=== PATIENT | male | born 1955 | race Caucasian/White ===

== ENCOUNTER 2018-02-24 15:30 | Outpatient (RCR) | payer OTHER, SELFPAY ==
--- NOTE | 2018-02-04 16:47 | HP.PTEVAL ---
Patient's Visit Information CHARITY REYES is a 62 year old M referred to Physical Therapy by Homer Brennan with a diagnosis of Tendinopathy of R rotator cuff, instability of R shoulder joint, OA of R AC. Date of Evaluation: 02/04/18 Physical Therapist: Dashawn Milligan PT, - Visit Plan Frequency: 2x /Week Duration: 3 Weeks Plan: Joint mobilizations, not at end range. Non-aggresive ROM exercises. Rotator cuff strengthening and scapular stabilizations. Precautions: avoid end range positions as pt has history of recurrent subluxations. - Subjective Subjective: Pt reports a long history of R shoulder subluxations. Most recent subluxation was about 6 months ago. In past 2-3 months, his R shoulder pain and ROM have worsened. Before this, patient would only have pain when shoulder would get out of place. Pt states that the doctor said his shoulder was freezing up. Pt reports pain at the superior and posterior aspects of his shoulder. He describes his symptom as an ache. Sleeping is difficult and painful. Had cortisone injection 2 weeks ago and this helped some. He is left handed. Denies neck pain, has intermittent numbness and tingling. Aggrevating factors: reaching across body, active abduction to 90 degrees. Easing factors: Medications, icyhot, ice. OCCUPATION: [employer], no work restrictions from R shoulder pain - Pain R shoulder Pain Intensity (Out of 10): 7 Pain Intensity Range: 10 Comment: achy - Objective POSTURE: forward head, Shay scapular winging R>L, head of humerus sitting anterior in glenoid. PALPATION: TTP supraspinatus, posterior scuff, medial scapular border. ROM: R shoulder: flexion 98, abduction 77, functional IR iliac crest, functional ER temporal. L shoulder: hypermobile in all planes. STRENGTH: R shoulder ER and IR 4-/5, supraspinatus 3+/5, serratus anterior 3+/5. L shoulder gross 4/5. ASSESSORY MOTION: R shoulder hypomobile inferior and posterior GH glide. - Special Tests R Shoulder Neer - Impingement: Positive R Shoulder Awan Benigno - Impingement: Positive R Shoulder Sulcus Sign - Inferior Laxity: Positive R Shoulder Apprehension/Relocaton - SLAP: Positive R Shoulder Shrug Sign - OA/Adhesive Capsulitis: Positive - Goals Goal 1:: Pt will demonstrate active shoulder elevation of >130 degrees to improve function tolerance with overhead reaching. Goal Time Frame: 4-6 Weeks Goal 2:: Pt will demonstrate external rotation ROM of >60 degrees to improve independence with self care activities. Goal Time Frame: 4-6 Weeks Goal 3:: Pt will demonstrate IR/ER strength of 4+/5 to improve GH stability. Goal Time Frame: 4-6 Weeks Goal 4:: Pt will be independent with HEP to sustain gains made in therapy. Goal Time Frame: 4-6 Weeks Goal 5:: Pt will improve DASH score by 8% to demonstrate true change in R UE function. Goal Time Frame: 4-6 Weeks - Rehabilitation Potential Physical Therapy Diagnosis: Pt is a 62 y/o male referred with diagnosis of R rotator cuff tendinopathy and instability of R shoulder joint. He reports a long history of recurrent R shoulder subluxations but worsening of R shoulder pain and ROM in past 2-3 months. Objective testing reveals decreased A/PROM, decreased strength, and GH accessory joint hypomobility. His ROM seems to be limited more from capular tightness. There may be underlying pathology but unable to complete further special testing due to his lack of ROM. His unaffected side does appear to be hypermobile. ROM and manual interventions will have to be performed with caution due to hypermobility and his history of subluxations. He has activity restrictions that include limited tolerance with reaching and overhead activities. His prognosis for an ideal outcome is good but is limited due to his history of recurrent dislocations. Pt will benefit from skilled therapy to addess the above mentioned impairments. Rehabilitation Potential: Good - Anticipated Interventions Patient/Client Instruction: Educate patient on: Condition, Plan of Care For the Purpose of:: To decrease pain, To increase ROM, To improve muscle performance and motor function, To improve ability to perform ADL's, To improve performance and independence with ADL's, To increase flexibility/ROM, To improve endurance, To prevent re-injury Therapeutic Exercise to Include: Strength training, Coordination, Body mechanics, Passive ROM, Active ROM For the Purpose of:: To decrease pain, To increase ROM, To improve ability to perform ADL's, To improve performance and independence with ADL's, To increase flexibility/ROM, To improve endurance, To prevent re-injury Manual Therapy Techniques to Include: Mobilization, Passive ROM For the Purpose of:: To decrease pain, To increase ROM, To improve muscle performance and motor function, To improve ability to perform ADL's, To decrease soft tissue restriction, To increase flexibility/ROM, To improve endurance Cryotherapy (ice pack, ice massage): Yes Ultrasound (thermal/non thermal): Yes For the Purpose of:: To decrease pain, To increase ROM, To increase tolerance to activity/condition/position Thank you for the opportunity to evaluate your patient. For Medicare and Medicare HMO plans, please review the plan of care and approve it. It will need to be FAXED BACK to us at [phone] for Medicare purposes. Please let me know if there are questions or concerns regarding this plan of care. Physician Signature: Date:
--- NOTE | 2018-02-24 16:05 | HP.PTDCSUM ---
HP - PT D/C Summary It has been my pleasure to treat CHARITY REYES under orders from Homer Brennan, for the diagnosis of Tendinopathy of R rotator cuff, instability of R shoulder joint, OA of R AC for a total of 6 visit(s). Discharge Date: 02/24/18 Please see the following information for a summary of their discharge status. - Subjective Subjective: Pt denies pain prior to the session. Morning pain is decreasing. Compliant with HEP. Feels comfortable for today being his last day. Understands he needs to continue his HEP. - Pain R shoulder Pain Intensity (Out of 10): 0 - Overall Improvement % Improvement: 75 - Objective Objective/Function: See goal updates. Pt has made good improvement in function, strength, and ROM since initial evaluation. Reports 75% improvement. L shoulder flexion 132 degrees, ER ROM 45 degrees, B IR/ER strength 5/5. - Goals Goal 1:: Pt will demonstrate active shoulder elevation of >130 degrees to improve function tolerance with overhead reaching. Goal Progress: Goal Met Goal 2:: Pt will demonstrate external rotation ROM of >60 degrees to improve independence with self care activities. Goal Progress: Progressing Goal 3:: Pt will demonstrate IR/ER strength of 4+/5 to improve GH stability. Goal 4:: Pt will be independent with HEP to sustain gains made in therapy. Goal Progress: Goal Met Goal 5:: Pt will improve DASH score by 8% to demonstrate true change in R UE function. Goal Progress: Goal Met - Plan Plan: D/C with HEP. - D/C Information Discharge Comments: Pt has made progress with R shoulder function, ROM, and strength. Pt has met 4/5 PT goals. His ROM is more functional but still limited overhead. His HEP was reviewed today and will allow him to contiune to work on his ROM. Patienmt plans to RTD If there are questions or concerns regarding this patient's physical therapy, please feel free to call me at [phone]. Thank you for the referral of this patient. Sincerely, Dashawn Milligan, PT,
== END 2018-02-24 19:00 | disposition home or self-care (01) ==
LOC: PT 15:30
PROVIDERS: Family Provider Family Medicine; PCP Family Medicine; Visit Provider Family Medicine
DX: M67.911 Unspecified disorder of synovium and tendon, right shoulder (principal); M25.311 Other instability, right shoulder; M19.011 Primary osteoarthritis, right shoulder
CPT/HCPCS: 97110; 97140; 97162; 97530

== ENCOUNTER 2018-11-17 16:01 | Observation (INO) | payer OTHER, SELFPAY ==
[2018-11-17] VITALS (7 sets, daily range): BP systolic 148–173; BP diastolic 86–102; PULSE 54–89; RESP 16–18; TEMP 36.6–36.8; O2SAT 94–97; BMI 26.6; BMI 25.4
--- NOTE | 2018-11-17 16:08 | EKG12_ITS ---
Test Reason : CP Blood Pressure : / mmHG Vent. Rate : 085 BPM Atrial Rate : 085 BPM P-R Int : 180 ms QRS Dur : 078 ms QT Int : 338 ms P-R-T Axes : 073 047 049 degrees QTc Int : 402 ms Normal sinus rhythm Septal infarct , age undetermined Abnormal ECG Confirmed by CATALINA MENEZES, ETHAN ([id number]), newspaper copy editor ENRIQUE FREEMAN ([id number]) on 11/20/2018 10:55:12 AM Referred By: Ezio Mir Confirmed By:ETHAN ARNOLD MD
--- NOTE | 2018-11-17 16:10 | RAD_ITS ---
STUDY: X-RAY CHEST REASON FOR EXAM: Male, 63 years old. Chest pain TECHNIQUE: Portable chest COMPARISON: None. FINDINGS: There is generalized pulmonary hyperlucency and hyperinflation with diffuse mild coarsening of interstitium in a pattern suggesting the possibility of underlying COPD. Correlate smoking history. The lungs are otherwise clear. Normal cardiomediastinal silhouette, ever and pleural margins. No acute osseous or upper abdominal process. RAD/Chest 1 View (Portable) IMPRESSION: No acute cardiopulmonary process. Electronically Signed: Omar Cardenas MD at 17:37 EDT Tel , Service support ,
[2018-11-17 16:24] LABS: Absolute Lymphocyte Count 2.39 X10^3/ul (0.83-4.51); Absolute Neutrophil Count 4.2 X10^3/uL (2.0-7.7); Basophil# 0.04 X10^3/uL; Basophil% 0.5 % (0-1); Eosinophil# 0.78 X10^3/uL; Eosinophils% 9.8 % (0-5); Hematocrit 44.8 % (40-54); Hemoglobin 15.1 g/dl (13.0-16.5); Lymphocyte # 2.39 X10^3/ul (4.0); Mean Corp Hgb Conc 33.7 g/gl (32-36); Mean Corpuscular Hgb 28.4 pg (27.0-32.0); Mean Corpuscular Volume 84.2 fL (80-94); Monocyte# 0.55 X10^3/uL; Monocyte% 6.9 % (0-10); Neutrophil % 52.7 % (47-70); POSITIVE COUNT NO; POSITIVE DIFFERENTIAL NO; POSITIVE MORPHOLOGY NO; Platelet Count 219 K/mm3 (150-450); RBC Distribution Width CV 13.5 % (11.6-14.6); RBC Distribution Width SD 41.9 fl (35.1-43.9); Red Blood Count 5.32 M/mm3 (4.6-6.2)
[2018-11-17 16:37] LABS: Anion Gap 8 (5-15); BUN 21 mg/dL (7-18); BUN/Creat Ratio 22.5 RATIO (10-20); Chloride 104 mmol/L (98-107); Creatinine, Serum 0.93 mg/dL (0.70-1.30); EST Glomerular Filtration Rate 87 mL/min (>60); Est Glom Filt Rate - Afr Amer 105 mL/min (>60); Glucose 93 mg/dL (74-106); Potassium 3.7 mmol/L (3.5-5.1); Sodium Level 137 mmol/L (136-145)
[2018-11-17] MEDS: Ondansetron 4 MG/2 ML Vial IV ×2 (17:35→21:05)
[2018-11-17] MEDS: Morphine 4 MG/ML Syringe IV ×2 (17:37→18:41)
[2018-11-17] MEDS: Aspirin 325 MG Tablet PO (17:37)
--- NOTE | 2018-11-17 17:43 | ED.VISSUMM ---
- ER Visit Summary Date of Service: 11/17/18 Chief Complaint: Chest pain History of Present Illness: The patient is a 63 M presenting with chest pain. Patient states this started on Saturday. He has had intermittent episodes of chest pain lasting approximately 30 minutes. He states he feels like a squeezing in his chest. He has associated shortness of breath, diaphoresis. He denies nausea or vomiting. Denies fever or cough. He has a history of hypertension, hypercholesterolemia, coronary disease. He is a previous smoker. He has 1 stent. His father had an GA at age 40. No PE/DVT risk factors. Physical Examination: Vitals are stable. Blood pressure 173/102. Patient is afebrile. Alert no acute distress. HEENT exam is unremarkable. Neck is supple. Lungs are clear and equal bilaterally. Heart is regular rate and rhythm. Abdomen is soft nontender nondistended. Extremities are unremarkable. Skin is warm and dry. No focal neurologic deficit. Remainder of exam is unremarkable. Emergency Department Course and Treatment: EKG is sinus rate of 85 with no acute ischemic changes. Chest x-ray shows no acute process. CBC, chemistries unremarkable other than BUN 21. Troponin is negative. Patient was given aspirin, morphine, Zofran. On reevaluation he is pain-free. On second reevaluation patient complains of 4 out of 10 chest pain. Repeat EKG was obtained and is unchanged. He is given additional morphine with improvement. Discussed with hospitalist for observation. Disposition: Observation Impression: Chest pain This note was generated with [employer] dictation software. It may contain incorrect words, spelling, and punctuation that were not noted in review of the chart prior to signing ED Disposition - Plan for ED Patient: Referrals: Homer Brennan MD [Primary Care Provider] -
--- NOTE | 2018-11-17 17:46 | ED.DCSUM_ITS ---
- ER Visit Summary Date of Service: 11/17/18 Chief Complaint: Chest pain History of Present Illness: The patient is a 63 M presenting with chest pain. Patient states this started on Saturday. He has had intermittent episodes of chest pain lasting approximately 30 minutes. He states he feels like a squeezin g in his chest. He has associated shortness of breath, diaphoresis. He denies nausea or vomiting. Denies fever or cough. He has a history of hypertension, hypercholesterolemia, coronary disease. He is a previous smoker. He has 1 stent. His father had an ND at age 40. No PE/DVT risk factors. Physical Examination: Vitals are stable. Blood pressure 173/102. Patient is afebrile. Alert no acute distress. HEENT exam is unremarkable. Neck is supple. Lungs are clear and equal bilaterally. Heart is regular rate and rhythm. Abdomen is soft nontender nondistended. Extremities are unremarkable. Skin is warm and dry. No focal neurologic deficit. Remainder of exam is unremarkable. Emergency Department Course and Treatment: EKG is sinus rate of 85 with no acute ischemic changes. Chest x-ray shows no acute process. CBC, chemistries unremarkable other than BUN 21. Troponin is negative. Patient was given aspirin, morphine, Zofran. On reevaluation he is pain-free. On second reevaluation patient complains of 4 out of 10 chest pain. Repeat EKG was obtained and is unchanged. He is given additional morphine with improvement. Discussed with hospitalist for observation. Disposition: Observation Impression: Chest pain This note was generated with [employer] dictation software. It may contain incorrect words, spelling, and punctuation that were not noted in review of the chart prior to signing ED Disposition - Plan for ED Patient: Referrals: Homer Brennan MD [Primary Care Provider] -
--- NOTE | 2018-11-17 18:37 | EKG12_ITS ---
Test Reason : REPEAT Blood Pressure : / mmHG Vent. Rate : 059 BPM Atrial Rate : 059 BPM P-R Int : 188 ms QRS Dur : 080 ms QT Int : 378 ms P-R-T Axes : 077 064 069 degrees QTc Int : 374 ms Sinus bradycardia Septal infarct , age undetermined Abnormal ECG Confirmed by CATALINA MENEZES, ETHAN ([id number]), film editor supervisor ENRIQUE FREEMAN ([id number]) on 11/20/2018 10:55:36 AM Referred By: Ezio Mir Confirmed By:ETHAN ARNOLD MD
--- NOTE | 2018-11-17 18:39 | HP.PCM_ITS ---
Problem List (1) COPD (chronic obstructive pulmonary disease) Status: Chronic (2) Atypical chest pain Status: Acute (3) Hypertension Status: Chronic (4) Dyslipidemia Status: Chronic History of Present Illness Date of Admission: 11/17/18 Chief Complaint: Chest pain for last 3 days The patient is a 63 year old M with history of coronary artery disease status post stent after SC in 2014, moved from [place] a year ago came to ED for chest pain. He had chest pain on last Saturday at 3 AM lasted for about 45 minutes to 1 hour. The chest pain was localized. After that, he felt short lasting chest pain and then today he had chest pain, left-sided which radiates to right and interscapular region lasted for about 40 minutes. He had associated shortness of breath, diaphoresis, dizziness and lightheadedness. Patient father had SC at the age of 40. In ED, he had 2 EKGs which shows normal sinus rhythm with old septal infarct. No significant ST-T changes suggestive of ischemia. Chest x-ray does not show acute change. Patient does not complain of exacerbation of cough, wheezing or sputum suggestive of COPD exenteration Past Medical History Past Medical History (Chronic Problems): Chronic Problems COPD (chronic obstructive pulmonary disease) (Chronic) Hypertension (Chronic) Dyslipidemia (Chronic) Allergies Penicillins Allergy (Verified 11/17/18 16:01) Hives Home Medications: Ambulatory Orders Medication Instructions Recorded Aspirin [Aspirin, Baby] 81 mg PO DAILY@0800 11/17/18 Carvedilol 6.25 mg PO BID 11/17/18 Lisinopril 5 mg PO DAILY 11/17/18 Nitroglycerin [Nitrostat] 0.4 mg SUBLINGUAL Q5M PRN 11/17/18 Red Yeast Rice 1,200 mg PO BID 11/17/18 Smoking Status: Former smoker - *Family History Paternal History Items: Heart Disease - SC at the age of 40 Review of Systems Constitutional: Denies: Chills, Fever, Weight Change HEENT: Denies: Head Aches, Sinus Congestion, Sinus Drainage Cardiovascular: Reports: Chest Pain. Denies: Palpitations Respiratory: Reports: Cough - Mild chronic cough secondary to COPD, Shortness of Breath. Denies: Shortness of breath at rest, Shortness of breath upon exertion, Sputum production Gastrointestinal: Denies: Abdominal Pain, Nausea, Vomiting Genitourinary: Denies: Dysuria, Frequency, Incontinence, Retention Musculoskeletal: Reports: - - He had traumatic injury of right hand fingers except thumb. Denies: Joint Pain, Joint Tenderness Skin: Denies: Rash, Wounds Neurological: Denies: Balance problems, Focal weakness, Numbness, Tingling Psychiatric: Denies: Anxiety, Depression, Homicidal Ideations, Suicidal Ideations Hematologic/ Lymphatic: Denies: Easy Bruising, Easy Bleeding VTE Information - Inpt Only VTE Present on Admission: No VTE Mechan Device Prophylaxis: None VTE Pharm Prophylaxis ordered?: Yes Patient Problems: Active and Suspected Problems Atypical chest pain (Acute) - Physical Exam General: Alert, Oriented x3, Cooperative HEENT: Atraumatic, PERRLA, EOMI, Normocephalic Neck: Supple, No JVD, Negative Carotid Bruits Lungs: Clear to auscultation, No rhonchi, No wheeze, No rales, Diminished - Air entry is diminished bilaterally Cardiovascular: Regular rate, Regular Rhythm, Normal S1, Normal S2, No murmurs Abdomen: Bowel Sounds Present, Soft, Non Tender, Non-Distended Extremities: No edema, Capillary Refill Less than 3 Seconds, - - 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 No acute issues Skin: No rashes, No breakdown Musculoskeletal: No Tenderness to Palpation of Joints or Extremities, Arthritic Changes Neurological: Cranial nerves II-XII grossly intact Psych/Mental Status: Normal Affect, Appropriate Vital Signs Temp Pulse Resp BP Pulse Ox 98.3 F 69 18 148/88 H 94 11/17/18 16:03 11/17/18 18:13 11/17/18 18:13 11/17/18 18:13 11/17/18 18:13 Oxygen Delivery Method Room Air Weight: 170 lb Body Mass Index (BMI) 26.6 Laboratory Tests Past 24 Hrs 11/17/18 11/17/18 16:05 16:05 WBC 8.0 RBC 5.32 Hgb 15.1 Hct 44.8 MCV 84.2 MCH 28.4 MCHC 33.7 RDW 13.5 RDW Differential 41.9 Plt Count 219 MPV 9.0 Immature Gran % (Auto) 0.100 Neut % (Auto) 52.7 Lymph % (Auto) 30.0 [place] % (Auto) 6.9 Eos % (Auto) 9.8 H Baso % (Auto) 0.5 Absolute Neuts (auto) 4.2 Absolute Lymphs (auto) 2.39 Total Counted Not Reportable Sodium 137 Potassium 3.7 Chloride 104 Carbon Dioxide 25.0 Anion Gap 8 BUN 21 H Creatinine 0.93 Estim Creat Clear Calc 77.00 Est GFR (MDRD) Af Amer 105 Est GFR (MDRD) Non-Af 87 BUN/Creatinine Ratio 22.5 H Glucose 93 Calcium 9.0 Troponin I < 0.015 Assessment/Plan All Active Problems Atypical chest pain (Acute) The patient is a 63 year old M with history of coronary artery disease status post stent after SC in 2014, moved from [place] a year ago came to ED for chest pain. He had chest pain on last Saturday at 3 AM lasted for about 45 minutes to 1 hour. The chest pain was localized. After that, he felt short lasting chest pain and then today he had chest pain, left-sided which radiates to right and interscapular region lasted for about 40 minutes. He had associated shortness of breath, diaphoresis, dizziness and lightheadedness. Patient father had SC at the age of 40. In ED, he had 2 EKGs which shows normal sinus rhythm with old septal infarct. No significant ST-T changes suggestive of ischemia. Chest x-ray does not show acute change. Patient does not complain of exacerbation of cough, wheezing or sputum suggestive of COPD exenteration 1. Atypical chest pain rule out acute coronary syndrome: The patient is being admitted in PCU. First troponin is negative. Serial troponin enzymes. Pharmacological nuclear stress test tomorrow morning. Fasting lipid profile t omorrow morning. TSH tomorrow a.m. 2. Coronary artery disease status status post stent, SC in 2015: Continue home cardiac medications. Patient is on baby aspirin, Coreg 6.25 mg twice daily, lisinopril 5 mg daily. 3. Hypertension: Patient stated his blood pressure was high on Saturday and at home. Currently 157/86. Increase the lisinopril to 10 mg daily. 4. Dyslipidemia: Not on a statin at home. Atorvastatin 40 mg nightly daily. Lipid profile tomorrow a.m. COPD: Stable. Bronchodilator as needed. Incentive spirometry. Mucinex 1200 mg twice daily. Chest x-ray did not show acute change. DVT prophylaxis: On heparin 5000 units subcutaneous twice daily. Discontinue if platelet count drops less than 50,000 or hemoglobin less than 8 g% Clinical Impression(s) from Imaging Studies Chest X-Ray 11/17/18 16:10 IMPRESSION: No acute cardiopulmonary process. Code Visit OBSV E&M: 90361 Initial observation care L3
[2018-11-17] MEDS: 0.9% NaCl Peripheral Flush Adult/Peds IV (21:05)
[2018-11-17] MEDS: Carvedilol 6.25 MG Tablet PO (21:05)
[2018-11-17] MEDS: Atorvastatin Calcium 40 MG Tablet PO (21:05)
[2018-11-17] MEDS: Heparin Injection (Vial) 5,000 UNIT/ML VIAL 5000 UNIT SC (21:05)
[2018-11-17] MEDS: Lisinopril 10 MG Tablet PO (21:16)
[2018-11-18] VITALS (7 sets, daily range): BP systolic 117–140; BP diastolic 66–78; PULSE 47–57; RESP 16–18; TEMP 36.5–36.9; O2SAT 93–96
--- NOTE | 2018-11-18 05:55 | EKG12_ITS ---
Test Reason : AM EKG Blood Pressure : / mmHG Vent. Rate : 049 BPM Atrial Rate : 049 BPM P-R Int : 196 ms QRS Dur : 086 ms QT Int : 404 ms P-R-T Axes : 061 050 064 degrees QTc Int : 364 ms Sinus bradycardia Septal infarct , age undetermined Abnormal ECG When compared with ECG of 17-NOV-2018 18:43, MANUAL COMPARISON REQUIRED, DATA IS UNCONFIRMED Confirmed by CATALINA MENEZES, ETHAN ([id number]), society editor ENRIQUE FREEMAN ([id number]) on 11/21/2018 9:37:51 AM Referred By: Ezio Mir Confirmed By:ETHAN ARNOLD MD
[2018-11-18 06:05] LABS: Absolute Lymphocyte Count 2.13 X10^3/ul (0.83-4.51); Absolute Neutrophil Count 3.1 X10^3/uL (2.0-7.7); Basophil# 0.03 X10^3/uL; Basophil% 0.5 % (0-1); Eosinophil# 0.59 X10^3/uL; Eosinophils% 9.5 % (0-5); Hematocrit 42.3 % (40-54); International Normalized Ratio 1.1; Lymphocyte # 2.13 X10^3/ul (4.0); Lymphocyte % 34.1 % (19-41); Mean Corp Hgb Conc 33.1 g/gl (32-36); Mean Corpuscular Hgb 28.1 pg (27.0-32.0); Mean Corpuscular Volume 84.9 fL (80-94); Mean Platelet Vol. 9.1 fl (6.2-12.0); Monocyte% 6.4 % (0-10); Neutrophil # 3.08 X10^3/uL (2.7-7.7); Neutrophil % 49.3 % (47-70); Platelet Count 188 K/mm3 (150-450); Prothrombin Time (Protime)PT. 13.8 SECONDS (11.7-14.9); RBC Distribution Width CV 13.6 % (11.6-14.6); RBC Distribution Width SD 41.7 fl (35.1-43.9); Red Blood Count 4.98 M/mm3 (4.6-6.2); White Blood Count 6.2 K/mm3 (4.4-11.0)
[2018-11-18 06:06] LABS: Partial Thromboplast Time 33.8 Seconds (24.1-36.2)
[2018-11-18] MEDS: Aspirin E.C. 81 MG Tablet PO (06:18)
[2018-11-18] MEDS: Lisinopril 10 MG Tablet PO (06:18)
[2018-11-18 06:40] LABS: Anion Gap 10 (5-15); BUN 20 mg/dL (7-18); BUN/Creat Ratio 22.7 RATIO (10-20); Calcium,Total 8.4 mg/dL (8.5-10.1); Chloride 105 mmol/L (98-107); Cholesterol 170 mg/dL (200); Creatinine, Serum 0.88 mg/dL (0.70-1.30); EST Glomerular Filtration Rate 93 mL/min (>60); Est Glom Filt Rate - Afr Amer 112 mL/min (>60); Estimated Creatinine Clearance 81.37 ml/min; Glucose 95 mg/dL (74-106); High Density Lipoprotein 59 mg/dL; Sodium Level 141 mmol/L (136-145); Thyroid Stim Hormone (TSH) 1.87 uIU/mL (0.358-3.74); Triglycerides 74 mg/dL; Very Low Density Lipoprotein 15 mg/dL (5-40)
[2018-11-18 06:45] LABS: POSITIVE COUNT NO; POSITIVE DIFFERENTIAL NO; POSITIVE MORPHOLOGY NO
[2018-11-18] MEDS: Carvedilol 6.25 MG Tablet PO (11:23)
--- NOTE | 2018-11-18 11:47 | STRESSREP ---
Stress Test Report From oncologic myocardial perfusion stress test. 63-year-old man with a history of coronary artery disease and chest pain. Medications: Aspirin Lipitor Coreg lisinopril. Stress protocol: Resting EKG demonstrates sinus bradycardia with a rate of 51 bpm normal intervals are noted resting blood pressure 136/80 mmHg. 0.4 mg of regadenoson was infused per usual protocol followed by rapid intravenous saline flush injection continuous EKG monitoring was performed. The maximum heart rate attained was 125 bpm which was 79% of maximum predicted heart rate the maximum workload was 1 metabolic equivalent. At rest there were no ST or T wave changes noted suggest abnormal flow reserve at peak infusion nonspecific ST-T wave changes were noted with normally the criteria for ischemia. Resting blood pressure 136/80 final blood pressure 142/82. Myocardial perfusion protocol. 11.8 mCi of technetium 99m sestamibi was injected at rest. 0.4 mg of regadenoson was infused per usual protocol peak infusion 32.9 mCi of technetium 99m sestamibi was injected stress images were obtained stress and rest images were reconstructed and compared in the short axis vertical long horizontal long axis. Gated images were also obtained Perfusion SPECT analysis: Review of the stress images demonstrate normal uptake of tracer noted in all areas of myocardium. The resting images similarly demonstrate normal uptake of tracer noted in all areas of myocardium. No obvious areas of reversibility are noted suggest ischemia no previous infarct is noted. Gated SPECT analysis: The gated ejection fraction is noted to be 79%. No wall motion abnormalities are present. Conclusion: Normal pharmacologic myocardial perfusion stress test. Preserved ejection fraction.
[2018-11-18] MEDS: Ensure Clear 120 ML Liquid PO (12:56)
--- NOTE | 2018-11-18 16:51 | PCM.DC ---
- Discharge Diagnoses Current Active Problems: Current Active and Chronic Problems COPD (chronic obstructive pulmonary disease) (Chronic) Atypical chest pain (Acute) Hypertension (Chronic) Dyslipidemia (Chronic) You will use the following diet at home:: Cardiac Your food should be the consistency of: Regular Your liquids should be the consistency of: Regular/Thin Discharge Activity: Return to Normal Activity Call your doctor if you observe: Fever of 101 or Higher, Shortness of breath, Dizziness, Fainting spells, Swelling in the ankles, Chest pain - persistent CP....shawn if comes on with exertion and goes away with rest, or it is associated with sweating, radiation to the jaw, arm or back Additional Instructions: The stress test was negative and the heart squueezes normally. The heart monitor did not show any funny things with the rhythm. The LDL, or bad cholesterol, is too high at 96......in patients who have had coronary artery disease the LDL should be less than 70. I am giving you a prescription for a lipid lowering agent. The medication is called Crestor and you will take it every night at bedtime. You will need to have your PCP order a Lipid panel and a liver panel in 6 weeks. I think you should have a surveillance specialist to follow up with and the surveillance specialist who supervised the stress test was Dr. Lester Parks. He would be happy to see you in the office. Allergies/Adverse Reactions: Allergies Penicillins Allergy (Verified 11/17/18 16:01) Hives Medications to take at Discharge Aspirin [Aspirin, Baby] 81 mg PO DAILY@0800 11/17/18 Carvedilol 6.25 mg PO BID 11/17/18 Lisinopril 5 mg PO DAILY 11/17/18 Nitroglycerin [Nitrostat] 0.4 mg SUBLINGUAL Q5M PRN 11/17/18 Red Yeast Rice 1,200 mg PO BID 11/17/18 Primary Care Physician: Homer Brennan MD [Primary Care Provider] - Please follow up with your Primary Care Physician in: 1-2 weeks Test Results: Test results from this visit will be discussed in further detail at your follow-up appointment, if applicable. Please Follow Up With: Lester Parks MD When: 2-4 weeks Proposed Discharge Date: 11/18/18
--- NOTE | 2018-11-18 16:55 | DCINST_ITS ---
- Discharge Diagnoses Current Active Problems: Current Active and Chronic Problems COPD (chronic obstructive pulmonary disease) (Chronic) Atypical chest pain (Acute) Hypertension (Chronic) Dyslipidemia (Chronic) You will use the following diet at home:: Cardiac Your food should be the consistency of: Regular Your liquids should be the consistency of: Regular/Thin Discharge Activity: Return to Normal Activity Call your doctor if you observe: Fever of 101 or Higher, Shortness of breath, Dizziness, Fainting spells, Swelling in the ankles, Chest pain - persistent CP....shawn if comes on with exertion and goes away with rest, or it is associated with sweating, radiation to the jaw, arm or back Additional Instructions: The stress test was negative and the heart squueezes normally. The heart monitor did not show any funny things with the rhythm. The LDL, or bad cholesterol, is too high at 96......in patients who have had coronary artery disease the LDL should be less than 70. I am giving you a prescription for a lipid lowering agent. The medication is called Crestor and you will take it every night at bedtime. You will need to have your PCP order a Lipid panel and a liver panel in 6 weeks. I think you should have a director of database marketing to follow up with and the director of database marketing who supervised the stress test was Dr. Lester Parks. He would be happy to see you in the office. Allergies/Adverse Reactions: Allergies Penicillins Allergy (Verified 11/17/18 16:01) Hives Medications to take at Discharge Aspirin [Aspirin, Baby] 81 mg PO DAILY@0800 11/17/18 Carvedilol 6.25 mg PO BID 11/17/18 Lisinopril 5 mg PO DAILY 11/17/18 Nitroglycerin [Nitrostat] 0.4 mg SUBLINGUAL Q5M PRN 11/17/18 Red Yeast Rice 1,200 mg PO BID 11/17/18 Primary Care Physician: Homer Brennan MD [Primary Care Provider] - Please follow up with your Primary Care Physician in: 1-2 weeks Test Results: Test results from this visit will be discussed in further detail at your follow- up appointment, if applicable. Please Follow Up With: Lester Parks MD When: 2-4 weeks Proposed Discharge Date: 11/18/18
--- NOTE | 2018-11-18 17:05 | PCM.DC.SUM ---
Discharge Date and Diagnosis - Problem List Patient Problems: Active and Suspected Problems Atypical chest pain (Acute) Date of Admission: 11/17/18 Date of Discharge: 11/18/18 - Primary Discharge Diagnosis Active and Suspected Problems Atypical chest pain (Acute) - Secondary Discharge Diagnosis Chronic Problems History of PTCA 1 (Chronic) Tobacco dependence in remission (Chronic) -quit in 2014 COPD (chronic obstructive pulmonary disease) (Chronic) Hypertension (Chronic) Dyslipidemia (Chronic) Hospital Course and Treatment Imaging Results: Clinical Impression(s) from Imaging Studies Chest X-Ray 11/17/18 16:10 IMPRESSION: No acute cardiopulmonary process. Electronically Signed: Omar Cardenas MD at 17:37 EDT Tel , Service support , Laboratory Tests 11/18/18 11/18/18 11/18/18 Range/Units 05:30 05:30 05:30 WBC 6.2 (4.4-11.0) K/mm3 RBC 4.98 (4.6-6.2) M/mm3 Hgb 14.0 (13.0-16.5) g/dl Hct 42.3 (40-54) % MCV 84.9 (80-94) fL MCH 28.1 (27.0-32.0) pg MCHC 33.1 (32-36) g/gl RDW 13.6 (11.6-14.6) % RDW Differential 41.7 (35.1-43.9) fl Plt Count 188 (150-450) K/mm3 MPV 9.1 (6.2-12.0) fl Immature Gran % (Auto) 0.200 (0.0-0.9) % Neut % (Auto) 49.3 (47-70) % Lymph % (Auto) 34.1 (19-41) % [place] % (Auto) 6.4 (0-10) % Eos % (Auto) 9.5 H (0-5) % Baso % (Auto) 0.5 (0-1) % Absolute Neuts (auto) 3.1 (2.0-7.7) X10^3/uL Absolute Lymphs (auto) 2.13 (0.83-4.51) X10^3/ul Total Counted Not Reportable PT 13.8 (11.7-14.9) SECONDS INR 1.1 APTT 33.8 (24.1-36.2) Seconds Sodium 141 (136-145) mmol/L Potassium 4.0 (3.5-5.1) mmol/L Chloride 105 (98-107) mmol/L Carbon Dioxide 26.0 (21.0-32.0) mmol/L Anion Gap 10 (5-15) BUN 20 H (7-18) mg/dL Creatinine 0.88 (0.70-1.30) mg/dL Estim Creat Clear Calc 81.37 ml/min Est GFR (MDRD) Af Amer 112 (>60) mL/min Est GFR (MDRD) Non-Af 93 (>60) mL/min BUN/Creatinine Ratio 22.7 H (10-20) RATIO Glucose 95 (74-106) mg/dL Calcium 8.4 L (8.5-10.1) mg/dL Troponin I (<0.045) ng/mL Triglycerides 74 ( - 199) mg/dL Cholesterol 170 (200) mg/dL LDL Cholesterol 96 (0-130) mg/dL VLDL Cholesterol 15 (5-40) mg/dL HDL Cholesterol 59 (40 - ) mg/dL TSH 1.87 (0.358-3.74) uIU/mL 11/17/18 11/17/18 11/17/18 Range/Units 22:40 20:10 16:05 WBC (4.4-11.0) K/mm3 RBC (4.6-6.2) M/mm3 Hgb (13.0-16.5) g/dl Hct (40-54) % MCV (80-94) fL MCH (27.0-32.0) pg MCHC (32-36) g/gl RDW (11.6-14.6) % RDW Differential (35.1-43.9) fl Plt Count (150-450) K/mm3 MPV (6.2-12.0) fl Immature Gran % (Auto) (0.0-0.9) % Neut % (Auto) (47-70) % Lymph % (Auto) (19-41) % [place] % (Auto) (0-10) % Eos % (Auto) (0-5) % Baso % (Auto) (0-1) % Absolute Neuts (auto) (2.0-7.7) X10^3/uL Absolute Lymphs (auto) (0.83-4.51) X10^3/ul Total Counted PT (11.7-14.9) SECONDS INR APTT (24.1-36.2) Seconds Sodium 137 (136-145) mmol/L Potassium 3.7 (3.5-5.1) mmol/L Chloride 104 (98-107) mmol/L Carbon Dioxide 25.0 (21.0-32.0) mmol/L Anion Gap 8 (5-15) BUN 21 H (7-18) mg/dL Creatinine 0.93 (0.70-1.30) mg/dL Estim Creat Clear Calc 77.00 ml/min Est GFR (MDRD) Af Amer 105 (>60) mL/min Est GFR (MDRD) Non-Af 87 (>60) mL/min BUN/Creatinine Ratio 22.5 H (10-20) RATIO Glucose 93 (74-106) mg/dL Calcium 9.0 (8.5-10.1) mg/dL Troponin I < 0.015 < 0.015 < 0.015 (<0.045) ng/mL Triglycerides ( - 199) mg/dL Cholesterol (200) mg/dL LDL Cholesterol (0-130) mg/dL VLDL Cholesterol (5-40) mg/dL HDL Cholesterol (40 - ) mg/dL TSH (0.358-3.74) uIU/mL 11/17/18 Range/Units 16:05 WBC 8.0 (4.4-11.0) K/mm3 RBC 5.32 (4.6-6.2) M/mm3 Hgb 15.1 (13.0-16.5) g/dl Hct 44.8 (40-54) % MCV 84.2 (80-94) fL MCH 28.4 (27.0-32.0) pg MCHC 33.7 (32-36) g/gl RDW 13.5 (11.6-14.6) % RDW Differential 41.9 (35.1-43.9) fl Plt Count 219 (150-450) K/mm3 MPV 9.0 (6.2-12.0) fl Immature Gran % (Auto) 0.100 (0.0-0.9) % Neut % (Auto) 52.7 (47-70) % Lymph % (Auto) 30.0 (19-41) % [place] % (Auto) 6.9 (0-10) % Eos % (Auto) 9.8 H (0-5) % Baso % (Auto) 0.5 (0-1) % Absolute Neuts (auto) 4.2 (2.0-7.7) X10^3/uL Absolute Lymphs (auto) 2.39 (0.83-4.51) X10^3/ul Total Counted Not Reportable PT (11.7-14.9) SECONDS INR APTT (24.1-36.2) Seconds Sodium (136-145) mmol/L Potassium (3.5-5.1) mmol/L Chloride (98-107) mmol/L Carbon Dioxide (21.0-32.0) mmol/L Anion Gap (5-15) BUN (7-18) mg/dL Creatinine (0.70-1.30) mg/dL Estim Creat Clear Calc ml/min Est GFR (MDRD) Af Amer (>60) mL/min Est GFR (MDRD) Non-Af (>60) mL/min BUN/Creatinine Ratio (10-20) RATIO Glucose (74-106) mg/dL Calcium (8.5-10.1) mg/dL Troponin I (<0.045) ng/mL Triglycerides ( - 199) mg/dL Cholesterol (200) mg/dL LDL Cholesterol (0-130) mg/dL VLDL Cholesterol (5-40) mg/dL HDL Cholesterol (40 - ) mg/dL TSH (0.358-3.74) uIU/mL none Operations: None Procedures: Stress test - Gated SPECT analysis: The gated ejection fraction is noted to be 79%. No wall motion abnormalities are present. Conclusion: Normal pharmacologic myocardial perfusion stress test. Preserved ejection fraction. Summary of Care Provided: The patient is a 63 year old M with a past medical history of hypertension, coronary artery disease, PTCA x1 stent in 2015 in [place], tobacco dependence in remission, dyslipidemia and COPD who presented to the emergency department at [facility] on 11/17/2018 complaining of intermittent stabbing/sharp chest pain for the preceding 3 days. The chest pain was very localized and was described as stabbing. He took nitroglycerin at home with no relief. It was not associated with exertion. He complained of associated shortness of breath, diaphoresis, lightheadedness and took his blood pressure after the chest pain started and was very worried because it was high. EKG in the emergency room showed normal sinus rhythm with a QS wave in V1 and V2 which can be seen with prior septal infarct but can also be seen with LVH. There were no significant ST or T wave changes to suggest ischemia. Chest x-ray showed hyperinflation with flattening of the diaphragms. Serial cardiac enzymes were negative. He was taken to the stress lab on 11/18/2018 for a pharmacologic nuclear stress test. The gated nuclear ejection fraction was 79% with no wall motion abnormalities and the test was negative for ischemia. Telemetry while in the hospital showed SB with no significant ectopy. Lipid panel on the date of discharge showed a total cholesterol of 170 with an LDL of 96 and an HDL of 59. Triglycerides were 74. TSH was normal at 1.7. He was discharged home with a prescription for Crestor and will take 10 mg p.o. nightly. I recommended since he has a history of coronary disease that he follow-up with a railroad detective and Dr. Parks has agreed to see him. He will follow-up with Dr. Brennan in 1-2 weeks. He will need a repeat lipid panel and liver panel in 6 weeks since he is starting on Crestor. PHYSICAL EXAM: GENERAL: alert, oriented X 3, Cooperative, NAD ORAL: moist mucosa, no mucosal lesions NECK: No JVD, supple, trachea midline LUNGS: CTA, symmetric chest expansion, diminished, no rales, no rhonchi, no wheezes HEART: RRR, Normal S1 and S2, no rub, no gallop, no murmur ABDOMEN: soft, NT, ND, BS present, no guarding with palpation, no abdominal bruits EXTREMITIES: no edema, no cyanosis, no calf tenderness SKIN: No rashes, no breakdown NEUROLOGIC: no focal neurologic deficits PSYCH: appropriate, normal affect, pleasant Dragon disclaimer. Patient Problems: Active and Suspected Problems Atypical chest pain (Acute) - Physical Exam Vital Signs Temp Pulse Resp BP Pulse Ox 98.2 F 56 L 16 121/73 H 93 11/18/18 12:00 11/18/18 14:00 11/18/18 12:00 11/18/18 12:00 11/18/18 12:00 Oxygen Delivery Method Room Air Weight: 162 lb 14.746 oz Body Mass Index (BMI) 25.4 Intake and Output for Last 24 Hours 11/16/18 11/17/18 11/18/18 23:59 23:59 23:59 Intake Total 240 / 240 Balance 240 / 240 Laboratory Tests Past 24 Hrs 11/17/18 11/17/18 11/18/18 20:10 22:40 05:30 WBC RBC Hgb Hct MCV MCH MCHC RDW RDW Differential Plt Count MPV Immature Gran % (Auto) Neut % (Auto) Lymph % (Auto) [place] % (Auto) Eos % (Auto) Baso % (Auto) Absolute Neuts (auto) Absolute Lymphs (auto) Total Counted PT INR APTT Sodium 141 Potassium 4.0 Chloride 105 Carbon Dioxide 26.0 Anion Gap 10 BUN 20 H Creatinine 0.88 Estim Creat Clear Calc 81.37 Est GFR (MDRD) Af Amer 112 Est GFR (MDRD) Non-Af 93 BUN/Creatinine Ratio 22.7 H Glucose 95 Calcium 8.4 L Troponin I < 0.015 < 0.015 Triglycerides 74 Cholesterol 170 LDL Cholesterol 96 VLDL Cholesterol 15 HDL Cholesterol 59 TSH 1.87 11/18/18 11/18/18 05:30 05:30 WBC 6.2 RBC 4.98 Hgb 14.0 Hct 42.3 MCV 84.9 MCH 28.1 MCHC 33.1 RDW 13.6 RDW Differential 41.7 Plt Count 188 MPV 9.1 Immature Gran % (Auto) 0.200 Neut % (Auto) 49.3 Lymph % (Auto) 34.1 [place] % (Auto) 6.4 Eos % (Auto) 9.5 H Baso % (Auto) 0.5 Absolute Neuts (auto) 3.1 Absolute Lymphs (auto) 2.13 Total Counted Not Reportable PT 13.8 INR 1.1 APTT 33.8 Sodium Potassium Chloride Carbon Dioxide Anion Gap BUN Creatinine Estim Creat Clear Calc Est GFR (MDRD) Af Amer Est GFR (MDRD) Non-Af BUN/Creatinine Ratio Glucose Calcium Troponin I Triglycerides Cholesterol LDL Cholesterol VLDL Cholesterol HDL Cholesterol TSH Discharge Activity: Return to Normal Activity Call your doctor if you observe: Fever of 101 or Higher, Shortness of breath, Dizziness, Fainting spells, Swelling in the ankles, Chest pain - persistent CP....shawn if comes on with exertion and goes away with rest, or it is associated with sweating, radiation to the jaw, arm or back Home Medications: Medications to take at Discharge Aspirin [Aspirin, Baby] 81 mg PO DAILY@0800 11/17/18 Carvedilol 6.25 mg PO BID 11/17/18 Lisinopril 5 mg PO DAILY 11/17/18 Nitroglycerin [Nitrostat] 0.4 mg SUBLINGUAL Q5M PRN 11/17/18 Red Yeast Rice 1,200 mg PO BID 11/17/18 Rosuvastatin Calcium [Crestor] 10 mg PO QHS #30 tablet 11/18/18 Following Prescrptions Were Given to Patient: Rosuvastatin Calcium [Crestor] 10 mg PO QHS #30 tablet Primary Care Physician: Homer Brennan MD [Primary Care Provider] - Please follow up with your Primary Care Physician in: 1-2 weeks Please Follow Up With: Lester Parks MD When: 2-4 weeks Disposition: Home Minutes spent on discharge:: 25 Patient Condition:: Good Medical Necessity - Tobacco Use Smoking Status: Former smoker - Quit in 2014 when he had a myocardial infarction Tobacco Use: Non-smoker Meaningful Use Info Meaningful Use Diagnoses (Choose all that apply): None applicable Code Visit OBSV E&M: 25613 Observation care discharge
== END 2018-11-18 17:04 | disposition home or self-care (01) ==
LOC: ED 17:40 → PCU 18:53
PROVIDERS: Admitting Provider Internal Medicine; Emergency Provider Emergency Medicine; Family Provider Family Medicine; PCP Family Medicine; Referring Provider Internal Medicine; Visit Provider Internal Medicine
DX: R07.89 Other chest pain (principal); J44.9 Chronic obstructive pulmonary disease, unspecified; I10 Essential (primary) hypertension; E78.5 Hyperlipidemia, unspecified; I25.10 Atherosclerotic heart disease of native coronary artery without angina pectoris; Z87.891 Personal history of nicotine dependence; Z95.5 Presence of coronary angioplasty implant and graft; Z79.899 Other long term (current) drug therapy; Z79.82 Long term (current) use of aspirin
CPT/HCPCS: 36415; 71045; 78452; 80048; 80061; 84443; 84484; 85025; 85610; 85730; 93005; 93017; 96372; 96374; 96375; 96376; 99218; 99282; A9500; A4216; G0378; J2405; J2785

== ENCOUNTER → 2018-12-04 07:47 | Outpatient (CLI) | payer OTHER, SELFPAY ==
[2018-11-17 19:04] VITALS: BMI 25.4
--- NOTE | 2018-12-04 08:03 | CDU_ITS ---
Reason For Study: transient neuro symptoms Rt. Velocities/BP Lt. Velocities/BP Prox CCA 82.7/26.4 cm/sec. Prox CCA 86.2/21.7 cm/sec. Mid CCA 79.2/22.3 cm/sec. Mid CCA 75.6/17.6 cm/sec. Dist CCA 73.9/19.9 cm/sec. Dist CCA 63.3/19.9 cm/sec. Prox ICA 68.0/24.0 cm/sec. Prox ICA 61.6/21.7 cm/sec. Mid ICA 65.7/28.7 cm/sec. Mid ICA 80.3/34.2 cm/sec. Dist ICA 112/41.6 cm/sec. Dist ICA 95.0/35.2 cm/sec. Rt. ICA/CCA = 1.4. Lt. ICA/CCA = 1.3. Prox ECA 87.9/22.9 cm/sec. Prox ECA 78.0/21.7 cm/sec. Rt. Vert. 48.1/17.0 cm/sec. Lt. Vert. 36.1/9.43 cm/sec. Right Extracranial There is homogeneous, smooth atherosclerotic plaque noted in the right common carotid artery. There is homogeneous, smooth atherosclerotic plaque noted in the right internal carotid artery. There is homogeneous, smooth atherosclerotic plaque noted in the right external carotid artery. Antegrade flow is noted in the right vertebral artery. There is heterogeneous, irregular atherosclerotic plaque noted in the right bulb. Left Extracranial There is homogeneous, smooth atherosclerotic plaque noted in the left common carotid artery. There is homogeneous, smooth atherosclerotic plaque noted in the left internal carotid artery. There is heterogeneous, smooth atherosclerotic plaque noted in the left external carotid artery. Antegrade flow is noted in the left vertebral artery. Procedure Carotid Duplex [id number]. The exam was diagnostic. Exam performed in department. Interpretation Summary Mild (<50%) stenosis right extracranial internal carotid. Mild (<50%) stenosis left extracranial internal carotid. Flow within the vertebral arteries is antegrade bilaterally. Ordering Physician: Homer Brennan Performed By: Nav Saunders RVT
== END ==
PROVIDERS: Family Provider Family Medicine; PCP Family Medicine; Referring Provider Family Medicine; Visit Provider Family Medicine
DX: R29.818 Other symptoms and signs involving the nervous system (principal); R42 Dizziness and giddiness
CPT/HCPCS: 93880